=== PATIENT | male | born 1975 | race African-American/Black ===

== ENCOUNTER 2017-01-05 14:47 | Emergency (ER) | payer OTHER ==
[~2017-01-05 14:47] MED LIST: ATENOLOL100 MG PO; BENZTROPINE MESY2 MG PO; CLONIDINE0.1 M1 PO; DOK100 MG PO; DOS; HALOPERIDOL10 MG PO; MECLIZINE HYDRO25 M1 PO; REGULOID; SEROQUEL300 MG PO; THO25; TRAZODONE HYDR100 MG PO; [UNRECOGNIZED DRUG - OTHER]
[2017-01-05 16:07] LABS: BASOPHIL % 0.4 % (0-2); PLATELET COUNT 175 x10^3mcL (130-400); RED CELL DISTRIBUTION WIDTH 13.5 % (11.5-14.5)
[2017-01-05 16:13] LABS: CALCIUM 8.8 mg/dL (8.5-10.1); CARBON DIOXIDE 29.5 mmol/L (21-32); CHLORIDE SERUM 104 mmol/L (98-107); CREATININE SERUM 1.1 mg/dL (0.7-1.3); GFR1 > 60 mL/min; GLUCOSE SERUM 104 mg/dL (74-106); POTASSIUM SERUM 3.7 mmol/L (3.5-5.1); SODIUM SERUM 140 mmol/L (136-145)
[2017-01-05 16:18] LABS: ALKALINE PHOSPHATASE 75 U/L (46-116); ALT/SGPT 38 U/L (16-63); AST/SGOT 31 U/L (15-37); BILIRUBIN TOTAL 0.3 mg/dL (0.20-1.00)
[2017-01-05 16:19] LABS: TOTAL PROTEIN, SERUM 8.4 g/dL (6.4-8.2)
[2017-01-05 17:20] LABS: UA SPECIFIC GRAVITY <=1.005 (1.005-1.035); microscopic required? YES; urine erythrocyte NEGATIVE (NEGATIVE)
[2017-01-05 19:16] VITALS: BP 136/76
== END 2017-01-05 18:45 | disposition home or self-care (01) ==
LOC: ED 14:47
PROVIDERS: Emergency Medicine
DX: E86.0 Dehydration (principal); N39.0 Urinary tract infection, site not specified; I10 Essential (primary) hypertension; Z88.8 Allergy status to other drugs, medicaments and biological substances
CPT/HCPCS: J0696; J2250; J7030